=== PATIENT | female | born 1935 | race Two or more races ===

== ENCOUNTER 2020-09-26 08:50 | Outpatient (CLI) | payer OTHER | END 2020-09-26 08:56 | disposition home or self-care (01) | LOC: SONOGRAMA 08:50 | PROVIDERS: ATTEND Pathology Anatomic Pathology & Clinical Pathology | DX: E06.3 Autoimmune thyroiditis (principal); D34 Benign neoplasm of thyroid gland; E04.8 Other specified nontoxic goiter ==